=== PATIENT | female | born 1975 | race Two or more races ===

== ENCOUNTER 2018-07-19 08:09 | Inpatient (IN) | payer OTHER ==
[2018-07-19] VITALS (10 sets, daily range): BP systolic 130–158; BP diastolic 80–96
[~2018-07-19] VITALS: Ht 165.1 cm; Wt 77.1 kg
[~2018-07-19 08:09] MED LIST: ALPRAZolam 0.5mg tab ORAL PRN; Albuterol ud Inhalation HHN PRN; Bacitracin 50000 Units Vial ONE; Chloraseptic Spray 20mL Bottle ORAL PRN; Gelfoam Size TOPIC ONE; HYDROmorphone 1mg/ml Carpuject SUBQ PRN; Lidocaine 1% Plain 30 ml INJ ONE; Morphine Sulfate 4mg/ml Inj (IV/IM USE ONLY) IM PRN; Thrombin 5000 units TOPIC ONE
[2018-07-19] MEDS ORDERED: Citalopram Hydrobromide 10mg Tab ORAL SCH (09:00)
[2018-07-19] MEDS ORDERED: Zemuron 50mg/5ml Inj IV ONE (09:17)
[2018-07-19] MEDS ORDERED: LR 1000ml 1,000 ML IVLG SCH (09:21)
--- NOTE | 2018-07-19 09:22 | Anethesia Preoperative Eval ---
Anesthesia Pre-op PMH/ROS General Date of Evaluation: Jul 19, 2018 Time of Evaluation: 10:26 Anesthesiologist: Wu ASA Score: ASA 2 Mallampati Score Class I : Soft palate, uvula, fauces, pillars visible Class II: Soft palate, uvula, fauces visible Class III: Soft palate, base of uvula visible Class IV: Only hard plate visible Mallampati Classification: Class I Surgeon: Marleen Diagnosis: Neck Pain Surgical Procedure: C 5-6 ACDF Anesthesia History: none Family History: no anesthesia problems Allergies: Coded Allergies: No Known Allergies (Unverified , 07/19/18) Medications: see eMAR Patient NPO?: Yes Past Medical History Neurologic/Psychiatric: Reports: depression/anxiety Other: obesity - BMI 31 PSxH Narrative: Bunionectomy, B Breast Aug Anesthesia Pre-op Phys. Exam Physician Exam Vital Signs Date Time Temp Pulse Resp B/P (MAP) Pulse Ox O2 Delivery O2 Flow Rate FiO2 07/19/18 09:24 98.1 88 18 130/80 99 Room Air 98.1 Constitutional: NAD Neurologic: CN 2-12 intact Cardiovascular: RRR Respiratory: CTA Gastrointestinal: S/NT/ND Airway Exam Mallampati Score: Class I MO: full ROM: limited Teeth: intact Anesthesia Pre-op A/P Labs Urine Test Test 07/19/18 08:20 Urine HCG, Qualitative Negative (NEGATIVE) Risk Assessment & Plan Assessment: ASA 2 Plan: GA, SED, GlideScope Go Status Change Before Surgery: No Pre-Antibiotics Dru Grams Ancef IV Given Within 1 Hr of Incision: Yes Time Given: 10:46 Luis Guadalupe MD Jul 19, 2018 09:22
[2018-07-19] MEDS ORDERED: Midazolam 2mg/2ml Inj IVP PRN (09:30)
[2018-07-19] MEDS ORDERED: Acetaminophen (Non formulary) 100 ML IV ONE (09:30)
[2018-07-19] MEDS ORDERED: DiphenhydrAMINE 50mg/ml Inj IVP PRN (09:30)
[2018-07-19] MEDS ORDERED: HYDROcodone/Acetamin 7.5/325 tab ORAL PRN (09:30)
[2018-07-19] MEDS ORDERED: oxyCODONE HCL/Acetaminophen 5/325mg ORAL PRN (09:30)
[2018-07-19] MEDS ORDERED: Atropine Sulfate 0.4mg/ml inj IVP PRN (09:30)
[2018-07-19] MEDS ORDERED: Norco 5mg/325mg tab ORAL PRN (09:30)
[2018-07-19] MEDS ORDERED: Morphine Sulfate 4mg/ml Inj (IV/IM USE ONLY) IM PRN (09:30)
[2018-07-19] MEDS ORDERED: fentaNYL 100 mcg/2 mL IV PRN (09:30)
[2018-07-19] MEDS ORDERED: Ketorolac 30mg Inj IV PRN ×2 (09:30)
[2018-07-19] MEDS ORDERED: LORazepam Inj 2mg/ml 1ml IV PRN (09:30)
[2018-07-19] MEDS ORDERED: ceFAZolin sod 1 GM in NS 55 ML IVPB ONE (09:45)
[2018-07-19] MEDS ORDERED: Sodium Chloride 10ml vial INJ ONE (09:46)
[2018-07-19] MEDS ORDERED: Lidocaine 1% MPF 10mg/ml 5ml ONE (09:46)
[2018-07-19] MEDS ORDERED: Dexamethasone 4mg/ml vial ONE (09:46)
[2018-07-19] MEDS ORDERED: Lidocaine 1% Plain 30 ml INJ ONE (09:57)
[2018-07-19] MEDS ORDERED: fentaNYL 100 mcg/2 mL IV ONE ×2 (10:05→12:11)
[2018-07-19] MEDS ORDERED: Dexamethasone 4mg/ml vial IVP SCH (10:15)
--- NOTE | 2018-07-19 10:27 | Immediate Post-Op Evaluation ---
Immediate Post-Op Evalulation Immediate Post-Op Evalulation Procedure: C5-6 ACDF Date of Evaluation: Jul 19, 2018 Time of Evaluation: 11:02 IV Fluids: 800 LR Blood Products: 0 Estimated Blood Loss: 20 Urinary Output: 0 Blood Pressure Systolic: 144 Blood Pressure Diastolic: 91 Pulse Rate: 94 Respiratory Rate: 16 O2 Sat by Pulse Oximetry: 100 Temperature (Fahrenheit): 97.6 Pain Score (1-10): 2 Nausea: No Vomiting: No Complications 0 Patient Status: awake, reacts, patent, extubated, none Hydration Status: adequate Dru Grams Ancef IV Given Within 1 Hr of Incision: Yes Time Given: 10:46 Luis Guadalupe MD Jul 19, 2018 10:27
--- NOTE | 2018-07-19 10:29 | Pre-Procedure Note/Attestation ---
Pre-Procedure Note/Attestation Complete Prior to Procedure Planned Procedure: not applicable Procedure Narrative: C5-C6 ACDF Indications for Procedure Pre-Operative Diagnosis: Post Trauma C5- C6 HNP raiculopathy, neurological deficit Attestation I attest that I discussed the nature of the procedure; its benefits; risks and complications; and alternatives (and the risks and benefits of such alternatives ), prior to the procedure, with the patient (or the patient's legal auto claim representative). I attest that, if there was a reasonable possibility of needing a blood transfusion, the patient (or the patient's legal auto claim representative) was given the [facility] standardized written summary, pursuant to the Dagoberto Yarely Blood Safety Act ([place] Health and Safety Code # 1645, as amended). I attest that I re-evaluated the patient just prior to the surgery and that there has been no change in the patient's H&P, except as documented below: ARSH PHAN Jul 19, 2018 10:29
[2018-07-19] MEDS ORDERED: NS Irrig 1000ml ONE (10:30)
[2018-07-19] MEDS ORDERED: Sterile Water Irrig 1000ml IRRIG ONE (10:30)
[2018-07-19] MEDS ORDERED: Propofol 1,000mg/ 100ml btl IV ONE (10:30)
[2018-07-19] MEDS ORDERED: LR 1000ml ONE (10:30)
[2018-07-19] MEDS ORDERED: CELEXA20 MG ORAL (10:32)
[2018-07-19] MEDS ORDERED: XANAX0.25 MG ORAL (10:32)
--- NOTE | 2018-07-19 11:31 | 48 Hour Post Anesthesia Eval ---
Post Anesthesia Evaluation Procedure: C5-6 ACDF Date of Evaluation: Jul 19, 2018 Time of Evaluation: 13:06 Blood Pressure Systolic: 122 0: 62 Pulse Rate: 92 Respiratory Rate: 16 Temperature (Fahrenheit): 97.6 O2 Sat by Pulse Oximetry: 99 Airway: patent Nausea: No Vomiting: No Pain Intensity: 2 Hydration Status: adequate Cardiopulmonary Status: Stable Mental Status/LOC: patient returned to baseline Follow-up Care/Observations: 0 Post-Anesthesia Complications: 0 Follow-up care needed: ready to discharge Luis Guadalupe MD Jul 19, 2018 11:31
[2018-07-19] MEDS ORDERED: Glycopyrrolate 0.2mg/ml 1ml Vial ONE (12:28)
--- NOTE | 2018-07-19 12:42 | Brief Operative Note ---
Immediate Post Operative Note Operative Note Pre-op Diagnosis: Post Trauma C5- C6 HNP raiculopathy, neurological deficit Procedure: ACDF C5-C6 Anterior Plate Osteopromotive SSEP Microscope Post-op Diagnosis: same as pre-op Findings: consistent w/pre-op dx studies Surgeon: Marleen ROBERTS Air Brakes Inspector: Stacey ROBERTS Anesthesiologist: Anayeli ROBERTS Anesthesia: general Specimen: yes Complications: none Condition: stable Fluids: anesthesia Estimated Blood Loss: minimal Drains: none Implant(s) used?: Yes ARSH PHAN Jul 19, 2018 12:42
[2018-07-19] MEDS ORDERED: D5 1/2NS 1,000 ML IV SCH (12:43)
[2018-07-19] MEDS ORDERED: Naloxone 0.4mg/ml Inj IVP PRN (12:45)
[2018-07-19] MEDS: Hydromorphone 0.5mg/0.5ml inj IVP PRN ×2 (13:02→13:30)
[2018-07-19] MEDS ORDERED: ALPRAZolam 0.25mg tab ORAL PRN (13:30)
[2018-07-19] MEDS ORDERED: Metoclopramide 10mg/2ml Inj IVP SCH (13:45)
[2018-07-19] MEDS ORDERED: Metoclopramide 10mg/2ml Inj ONE (13:45)
--- NOTE | 2018-07-19 15:03 | Diagnostic Imaging Report ---
Indication: Neck Pain Findings: 3 fluoroscopic views of the cervical spine were obtained. Intraoperative views showing localization followed by anterior fusion with a plate and screws, discectomy and disc prosthesis placement at C5-6. IMPRESSION: Intraoperative imaging
[2018-07-19] MEDS: HYDROcodone/Acetamin 10/325 tab ORAL PRN ×2 (16:39→17:58)
[2018-07-19] MEDS ORDERED: ceFAZolin sod 1 GM in D5W 55 ML IV SCH (19:00)
--- NOTE | 2018-07-19 19:45 | Consultation ---
DATE OF CONSULTATION: 07/19/2018 CONSULTING PHYSICIAN: Panda Felix M.D. REFERRING PHYSICIAN: Alessandro Hawley M.D. REASON FOR CONSULTATION: Acute pain consult. Dear Dr. Alessandro Hawley, Thank you kindly for consulting me to evaluate and render an opinion as to how to proceed in the management of the patient's acute postoperative cervical spine pain after cervical spine instrumentation surgery today. The patient is a pleasant 43-year-old woman, who I saw at the bedside with her and the nurse RN, Shirlene. The patient injured her neck after a slip and fall accident at a local restaurant and bar. She underwent multiple epidural injections, but without continued improvement, she required cervical spine instrumentation surgery today. You consulted me to help optimize her pain control postoperatively. I saw the patient at bedside. I performed a detailed history and physical examination. I reviewed the medical record in detail including multiple preoperative records from Dr. Gramajo along with multiple records from today's date of surgery at [facility] including records from the nursing department, pharmacy department, and surgery team. PAST MEDICAL HISTORY: 1. Acute postoperative cervical spine pain, status post cervical spine instrumentation surgery by Dr. Alessandro Hawley in July 2018. 2. Slip and fall accident. 3. Obesity. 4. Severe anxiety. 5. Asthma. 6. Uterine fibroids. PAST SURGICAL HISTORY: 1. Epidural steroid injections. 2. Breast augmentation surgery. 3. Gynecology surgery. ALLERGIES: No known drug allergies. MEDICATIONS: At home, Celexa 10 mg daily, Xanax 0.25 mg 4 times a day p.r.n., p.r.n. Birney. SOCIAL HISTORY: The patient drinks alcohol socially. She admits to a few cigarettes from time to time. I did school counselor the patient to stop smoking. The patient denies marijuana usage, although she does use CBD ointment on a daily basis. The patient does drink coffee each morning. She is accompanied at the bedside by her and lives at home with 2 children. FAMILY HISTORY: Obesity. REVIEW OF SYSTEMS: Per Dr. Gramajo. PHYSICAL EXAMINATION: VITAL SIGNS: Age 43, height 5 feet 5 inches, weight 184 pounds, body-mass index 30. Vital signs in the medical record. HEENT: Normocephalic and atraumatic. NECK: Significant range of motion of the neck discomfort. Detailed neurologic exam per Dr. Hawley. CHEST: Clear to auscultation. No wheezes, rales, rhonchi, or accessory muscle use noted. ABDOMEN: Moderately obese. Positive bowel sounds. HEART: Regular rate and rhythm. BREASTS: Deferred to Dr. Gramajo. GENITOURINARY: Deferred to Dr. Gramajo. NEUROLOGIC: Detailed neurologic exam per Dr. Hawley. DIAGNOSTIC TESTING: Shows a CT of cervical spine on May 28, 2018, shows minimal anterolisthesis at C4 and C5 with loss of disk space height at C5-C6. MRI of cervical spine dated June 12, 2018, impression, 1-2-mm posterior disk protrusions at C4-C5 which indents the anterior thecal sac, disk bulge formed with a 4 mm posterior left paracentral disk protrusion at C5-C6 with moderate spinal stenosis and impingement of the anterior spinal cord by disk protrusion. A 12-lead EKG dated July 12, 2018, normal sinus rhythm, borderline left atrial enlargement, no evidence for acute cardiac ischemia. Preoperative chest x-ray shows no acute intrathoracic disease dated July 12, 2018. Laboratory studies on July 12, 2018, shows glucose 86, BUN 10, creatinine 0.5, sodium 139, potassium 4.3, chloride 104, bicarbonate 20, calcium 9.4. Total protein 7.5, albumin 4.7, total bilirubin 0.4, alkaline phosphatase 87, AST 27, ALT 45. Hemoglobin A1c normal at 5.5. PTT 32, INR 1.0. White count 10, hematocrit 42, platelets 360,000. Urinalysis negative. Hepatitis B and C, and HIV are all negative. IMPRESSION: 1. Acute postoperative cervical spine pain, status post cervical spine instrumentation surgery by Dr. Alessandro Hawley in July 2018. 2. Slip and fall accident. 3. Obesity. 4. Severe anxiety. 5. Asthma. 6. Uterine fibroids. TREATMENT RECOMMENDATIONS: I have restarted the patient's Celexa for mood stabilization and I have increased the frequency of her baseline Xanax to 0.25 mg orally every 6 hours p.r.n. for anxiety or spasm symptoms. The patient believes she had tolerated morphine during previous hospitalizations, so I have ordered a breakthrough dose of intramuscular morphine. I have ordered intramuscular morphine 4 mg q.3 hours p.r.n. for severe pain complaints. The patient already has a supply of Birney 10/325 tablets for outpatient usage and here in the hospital, I will use 1 tablet every three hours p.r.n. for mild pain. I have added Zofran 4 mg intravenously as a first-line antiemetic agent along with a dose of Phenergan 12.5 mg intramuscularly every 8 hours in case of refractory nausea symptoms. I have also ordered a dose of Fioricet one tablet orally every 8 hours in case of any headache complaints. The patient does use caffeine chronically, and I suspect a caffeine-withdrawal headache may ensue. I have ordered Chloraseptic spray to the bedside to help with any topical sore throat complaints. I have ordered Benadryl 25 mg orally every 6 hours p.r.n. for itching symptoms. I will place the patient empirically on Pepcid 20 mg b.i.d. to help reduce the risk for GI ulcers. I have also added p.r.n. dose of Mylanta 30 mL q.6 hours in case of any GERD symptom exacerbation. I will order incentive spirometer to encourage good pulmonary toilet and help reduce the risk of postoperative pneumonia and atelectasis. I will defer DVT prophylaxis to the surgeon. The patient does admit to using CBD oil on a daily basis. She has a good supply at home and I did suggest that she continue to use it topically although to be aware to space out the doses of her home Birney and Xanax to avoid potentiation of respiratory depression while on multiple narcotic agents. Panda Felix M.D. DR: Keyur JOB#: [id number] CC:
--- NOTE | 2018-07-19 23:45 | Operative Note - Dictated ---
DATE OF OPERATION: 07/19/2018 SURGEON: Alessandro Hawley, PhD, MD. SAND CUTTING MACHINE OPERATOR SURGEON: Hilton Ibarra MD. ANESTHESIOLOGIST: Luis Guadalupe M.D. ANESTHESIA: General with intubation. ESTIMATED BLOOD LOSS: Minimal. 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 OPERATIVE PROCEDURE: 1. C5-C6 anterior cervical diskectomy with fusion ____. 2. Interbody tritanium graft containing osteopromotive material. 3. Anterior internal plate fixation. 4. High-powered microscopic dissection. 5. SSEP monitoring. 6. Intraoperative fluoroscopy interpreted by surgeon. POSTOP CONDITION: Good/stable. SPECIMEN: Disk fragments to pathology. DESCRIPTION OF PROCEDURE: The patient was brought to the operating room and in the supine position, general anesthesia with intubation was induced. IV antibiotics, IV Decadron were administered 30 minutes prior to incision time. The patient carefully turned and positioned in the supine position. A spinal needle within the sheath was taped to the contralateral (right) aspect of the cervical spine. A cross-table radiograph was obtained demonstrating the correct level for further surgical incision placement. Level was marked. Needle removed. Anterior cervical spine sterilely prepped and draped free in usual sterile fashion. A transverse left incision was sharply placed through dermis and epidermis at the appropriate interval. Electrocautery dissection through subcutaneous tissue to the platysmas muscle was identified, isolated, and transected in line with the incision. Dissection was carried medial to the left sternocleidomastoid muscle and carotid sheath through the deep cervical and pretracheal fascia to the midline between the right and left longus colli muscles. A spinal needle bent at 90-degree angles so as to avoid penetration greater than 3 mm in disk space was placed into the disk space and AP and lateral radiographs were obtained under sterile conditions demonstrating the correct level and midline for further incision. Annulotomy was performed under high-power magnification followed with removal of the anterior anulus. Needle was removed. A marking pen under sterile conditions was utilized to susi the interval. Longus colli muscles were elevated subperiosteally not exceeding 3 mm in the mediolateral extent. Retractors placed. Under high-power magnification, annulotomy was performed with diskectomy to, but not through the posterior longitudinal ligament. Anterior osteophyte and inferior C5 was resected under high-power magnification, Midas Angel bur dissection. Endplates were denuded of cartilaginous endplates to the subchondral bone. Anulus posterior removed under high-power magnification with decompression of the spinal cord and nerve roots. No dural tears or leaks at anytime during the procedure. SSEP monitoring negative with negative EMG activity at anytime. Interpositional graft with the appropriate dimension/sized tritanium graft lordotic was tamped into position containing osteopromotive material in combination with local autograft. the insertion device precludes plunging with graft. Graft positioned. Cross-table image obtained demonstrating excellent alignment, position, and correct level. Insertion device removed. Distraction pins had been utilized of 40 mm in length over the interval prior to the diskectomy. They were removed. Bleeding bone was cauterized with application of sterile wax. Ten pounds of traction on the neck was removed. Anterior internal plate fixation in a compressive fashion was performed under high-power magnification. Cross-table imaging revealed excellent alignment and placement. Wound irrigated with antibiotic-containing saline. No obvious excoriation or laceration of vital structures. After copious irrigation, platysmas muscle was reapproximated with simple interrupted sutures. Subcuticular closure of dermis and epidermis with surgical strips. AP and lateral radiographs under sterile conditions demonstrating the correct level and alignment. Anterior bandage was placed and maintained in place with tape. The patient was awakened, extubated in the operating room, and transported to postop recovery in good and stable condition. Alessandro Hawley M.D. DR: Cyndy JOB#: [id number] CC:
--- NOTE | 2018-07-20 08:04 | Discharge Summary ---
Discharge Summary Discharge Summary _ DATE OF ADMISSION: 07/19/2018 DATE OF DISCHARGE: 07/19/2018 CONSULTANTS: Dr. Panda Felix BRIEF HOSPITAL COURSE: Patient is a 43-year-old female, who was diagnosed with posttraumatic cervical herniated nucleus pulposus with cord displacement/neural compression, radiculopathy and weakness. Patient injured her neck after a slip and fall accident at the local restaurant and bar. She underwent multiple epidural injections, but without continued improvement of symptoms. She was admitted and underwent C5-C6 anterior cervical discectomy with fusion. He tolerated procedure well. Surgery was uneventful. Post-operatively, patient was admitted for post-op care. Patient was placed on SCDs for DVT prophylaxis and was encouraged use of incentive spirometer. Patient was given pain management. Patient was seen by PT and OT. Diet was advanced. Incision was clean, dry and intact. Patient was ambulating well with good pain control and tolerating diet. Patient was eventuallly cleared for dischage home. FINAL DIAGNOSES: Posttraumatic cervical herniated nucleus pulposus with cord displacement/neural root compression, radiculopathy and weakness Status post C5-C6 anterior cervical discectomy with fusion (Refer to operative report) DISPOSITION: She was discharged home. DISCHARGE MEDICATIONS: Continue home [place] and Xanax. DISCHARGE INSTRUCTIONS: Follow-up in 1-2 weeks. I have been assigned to dictate discharge summary on this account, and I was not involved in the patient's management. Josselyn Vizcaino NP Jul 20, 2018 08:04
== END 2018-07-19 20:20 | disposition home or self-care (01) | DRG 472 ==
LOC: SUR 08:09 → 3E 14:37
PROC: 0RG10A0 Fusion of Cervical Vertebral Joint with Interbody Fusion Device, Anterior Approach, Anterior Column, Open Approach (ICD-10-PCS; principal; 2018-07-19 10:00)
PROC: 0RB30ZZ Excision of Cervical Vertebral Disc, Open Approach (ICD-10-PCS; principal; 2018-07-19 10:00)
DX: M50.122 Cervical disc disorder at C5-C6 level with radiculopathy (principal); M50.022 Cervical disc disorder at C5-C6 level with myelopathy; X58.XXXS Exposure to other specified factors, sequela; E66.9 Obesity, unspecified; F41.9 Anxiety disorder, unspecified; J45.909 Unspecified asthma, uncomplicated; D25.9 Leiomyoma of uterus, unspecified
CPT/HCPCS: 36415; 72040; 76001; 81025; 86850; 86900; 86901; 87081; J2405; J2765